=== PATIENT | male | born 1945 | race Caucasian/White ===

== ENCOUNTER → 2020-09-07 | Outpatient (CLI) | payer MEDICARE ==
--- NOTE | 2020-09-08 09:30 | US ---
EXAMINATION TYPE: US duplex aorta DATE OF EXAM: 09/07/2020 COMPARISON: NONE CLINICAL HISTORY: Z13.6 Encounter for screening for cardiovascular disorders. EXAM MEASUREMENTS: Abdominal Aorta: Proximal: 2.2cm Mid: 1.7cm Distal: 1.5cm Bifurcation: Right: 1.3 Left: 0.9cm There are mild atheromatous changes present along the aortoiliac distribution. Grayscale and color an d spectral Doppler imaging performed. Color flow and normal vascular waveform noted. IMPRESSION: No evident abdominal aortic aneurysm
--- NOTE | 2020-09-08 16:42 | ECHOF ---
Referral Reason:R94.31 Abnormal EKG, Z13.6 Screening for Abdominal MEASUREMENTS -------- HEIGHT: 165.1 cm WEIGHT: 80.3 kg BP: RVIDd: 4.1 cm (< 3.3) IVSd: 1.3 cm (0.6 - 1.1) LVIDd: 5.1 cm (3.9 - 5.3) LVPWd: 1.4 cm (0.6 - 1.1) IVSs: 1.8 cm LVIDs: 3.6 cm LVPWs: 1.6 cm LAESV Index (A-L): 22.78 ml/m Ao Diam: 3.6 cm (2.0 - 3.7) AV Cusp: 2.1 cm (1.5 - 2.6) LA Diam: 4.3 cm (2.7 - 3.8) MV EXCURSION: 21.085 mm (> 18.000) MV EF SLOPE: 63 mm/s (70 - 150) EPSS: 1.7 cm MV E Oniel: 0.49 m/s MV A Oniel: 0.95 m/s MV E/A Ratio: 0.51 RAP: 5.00 mmHg RVSP: 26.56 mmHg FINDINGS -------- Resting bradycardia (HR<60bpm). This was a technically adequate study. The left ventricular size is normal. There is mild concentric left ventricular hypertrophy. Overa ll left ventricular systolic function is low-normal with, an EF between 50 - 55 %. The diastolic fi lling pattern is normal for the age of the patient 12.30. The right ventricle is mild to moderately enlarged. Normal LA size by volume 22+/-6 ml/m2. The right atrial size is normal. Interatrial and interventricular septum intact. The aortic valve is trileaflet and appears structurally normal. There is no evidence of aortic regu rgitation. There is no evidence of aortic stenosis. No mitral regurgitation. Mild tricuspid regurgitation present. There is no evidence of pulmonary hypertension. The right v entricular systolic pressure, as measured by Doppler, is 26.56mmHg. There is no pulmonic regurgitation present. The aortic root size is normal. IVC Not well visulized. There is no pericardial effusion. CONCLUSIONS -------- 1. The left ventricular size is normal. 2. There is mild concentric left ventricular hypertrophy. 3. Overall left ventricular systolic function is low-normal with, an EF between 50 - 55 %. 4. The right ventricle is mild to moderately enlarged. 5. Mild tricuspid regurgitation present. SPECIAL TECHNICAL OPERATIONS OFFICER: Traci Lott RDCS
== END | disposition home or self-care (01) ==
LOC: RADECHMAIN 16:09
PROVIDERS: ATTEND Family Medicine
DX: Z13.6 Encounter for screening for cardiovascular disorders (principal); I07.1 Rheumatic tricuspid insufficiency
CPT/HCPCS: 93306; 93979

== ENCOUNTER → 2020-09-14 | Outpatient (CLI) | payer MEDICARE ==
--- NOTE | 2020-09-14 09:06 | MR ---
EXAMINATION TYPE: MR knee LT wo con DATE OF EXAM: 09/14/2020 COMPARISON: NONE. HISTORY: Twisted left knee, Pain behind Patella and behind knee. TECHNIQUE: Multiplanar, multisequence imaging of the left knee is performed without IV contrast. FINDINGS: MEDIAL MENISCUS: Medial extrusion of medial meniscus on coronal images. Vague increased signal mental health case manager ior horn likely extends to inferior articular surface sagittal image 24. Similar but less prominent f inding anterior horn LATERAL MENISCUS: Anterior and posterior horns are intact without tear. CRUCIATE LIGAMENTS: The anterior and posterior cruciate ligaments are intact and unremarkable. COLLATERAL LIGAMENTS: The medial collateral ligament and lateral collateral ligament complex are inta ct and unremarkable. EXTENSOR MECHANISM: Visualized quadriceps and patellar tendons are intact. EFFUSION: Large size suprapatellar joint effusion. POPLITEAL CYST: Moderate to large sized multi septated and leaking popliteal/mix cyst. TRICOMPARTMENT SPACES: Moderate to severe narrowing inferior medial tibiofemoral compartment. Mild to moderate narrowing medial lateral tibiofemoral compartment with mild to moderate tricompartment join t space spurring. CARTILAGE: Some chondromalacia patella with thinning of articular cartilage along the inferior aspect posterior patellar pole. Some cartilaginous loss medial tibial femoral compartment. BONE MARROW SIGNAL: Slight heterogeneous increased T2 signal medial aspect medial tibial plateau sagi ttal image 25 for reference. OTHER: No additional significant abnormality is appreciated. IMPRESSION: 1. Tricompartment degenerative changes greatest in patellofemoral and medial tibiofemoral compartment as detailed above. 2. Large suprapatellar joint effusion. 3. Large septated leaking popliteal cyst. 4. Intrasubstance tears anterior and posterior horn medial meniscus, probable full-thickness extensio n posterior horn.
== END | disposition home or self-care (01) ==
LOC: RADMRIMAIN 07:16
PROVIDERS: ATTEND Family Medicine
DX: M17.12 Unilateral primary osteoarthritis, left knee (principal); M66.0 Rupture of popliteal cyst; S83.8X2A Sprain of other specified parts of left knee, initial encounter

== ENCOUNTER → 2020-11-29 | Day surgery (SDC) | payer MEDICARE ==
[2020-11-25 17:12] VITALS: BMI 30.9
[~2020-11-29] MED LIST: ALPRAZolam 0.25 MG TAB PO PRN; ALPRAZolam 0.5 MG TAB PO PRN; ASPIRIN 325 MG TAB PO ONE; ASPIRIN 81 MG PO SCH; ATORVASTATIN 80 MG TAB PO ONE; HEPARIN SODIUM 1,000 UN/ML (10ML VL) IV ONE; HEPARIN SODIUM 1,000 UN/ML (10ML VL) ONE; HEPARIN SODIUM,PORCINE 10,000 UNIT in SODIUM CHLORIDE 0.9% 1,000 ML IRRIGATION PRN; HEPARIN SODIUM,PORCINE 2,500 UNIT in SODIUM CHLORIDE 0.9% 250 ML IRRIGATION PRN; IOPAMIDOL-370 125ML BTL INJ ONE; LIDOCAINE 1% INJ 10MG/ML (20 ML MDV) ONE; LIDOCAINE 1% INJ 10MG/ML (20 ML MDV) SQ ONE; LOSARTAN 50 MG TAB PO SCH; MULTIVITAMINS, THERA 1 EACH TAB PO SCH; NITROGLYCERIN SL TABS 0.4 MG TAB SUBLINGUAL PRN; RX INFO: IV CONTRAST WAS GIVEN 1 EACH MISC MISCELLANE PRN; SODIUM CHLORIDE 0.9% 1,000 ML IV SCH; SODIUM CHLORIDE 0.9% 1,000 ML in EMPTY BAG 1 BAG IV ONE; VERAPAMIL 2.5 MG/ML 2 ML AMP ONE; VERAPAMIL SYRINGE (5 MG/10 ML) INTRAARTER ONE; amLODIPine 5 MG TAB PO SCH; fentaNYL (PF) 50 MCG/ML 2 ML AMP IV ONE; fentaNYL (PF) 50 MCG/ML 2 ML AMP ONE; hydroCHLOROthiazide 12.5 MG CAP PO SCH
[2020-11-29 06:38] VITALS: RESP 16; TEMP 98.5
[2020-11-29 10:06] VITALS: BP 140/83; PULSE 48
--- NOTE | 2020-11-29 10:21 | CC ---
CARDIAC CATHETERIZATION REPORT The patient is a 75-year-old male with known history of hypertension, hyperlipidemia who recently had an evidence of stress-induced ischemia on his myocardial perfusion imaging. In view of that, recommendation regarding cardiac catheterization. The procedure, as well as the risks and the complications were discussed with the patient who is in full understanding and agreement. 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 Using Xylocaine anesthesia and Seldinger technique, a 6-Monegasque sheath was introduced in the right radial artery. Selective right and left coronary angiography performed using 5-Monegasque, 3.5 bend right and left Judkin's catheter. Multiple views of the coronary artery including hemiaxial views were obtained. Following that, a 5-Monegasque tight pigtail catheter introduced into the left ventricle and pressures were calculated. Following that, catheter and sheath were removed. Hemostasis was obtained with deployment of a TR band. There was no immediate complication. The patient was returned to his room in stable condition. Of note, the patient received a total of 4500 units of intravenous heparin, as well as intra-arterial verapamil. FINDINGS: LEFT MAIN: This is a large-sized vessel, bifurcating into left circumflex, left main coronary artery has no evidence of high-grade stenosis. LEFT ANTERIOR DESCENDING CORONARY ARTERY: This is a large-sized vessel reaching to the apex with a wraparound apex segment giving rise to a 2 diagonal branches of moderate caliber. The left anterior descending artery in the mid segment has a 30% to 40% plaque. After the takeoff of the second diagonal branch, the rest of the vessel has no high-grade stenosis. LEFT CIRCUMFLEX: This is a large nondominant vessel giving rise to 3 obtuse marginal branches. The third is the largest. The left circumflex, as well as branches have no evidence of obstructive coronary artery disease. RIGHT CORONARY ARTERY: This is a dominant vessel large in caliber. Bifurcating distally PDA and posterolateral segment branches. The right coronary artery, as well as branches have no evidence of obstructive disease. LEFT VENTRICULOGRAM: Left ventriculogram was not performed. HEMODYNAMICS: There was no gradient across the aortic valve. The left ventricular end-diastolic pressure was 10-12 mmHg. CONCLUSION: 1. 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 2. Right dominance. RECOMMENDATION: In view of findings and anatomy, I recommend continue medical therapy with aggressive coronary risk modifications that have been initiated. Those findings and recommendation were discussed with the patient and his family and they are in full understanding and agreement. Duration of sedation is 17 minutes. MMODL / IJN: [id number] /
== END | disposition home or self-care (01) ==
LOC: CATHCVL 06:10
PROVIDERS: ATTEND Internal Medicine Interventional Cardiology
DX: I25.10 Atherosclerotic heart disease of native coronary artery without angina pectoris (principal); R94.39 Abnormal result of other cardiovascular function study; E78.5 Hyperlipidemia, unspecified; I10 Essential (primary) hypertension; Z79.899 Other long term (current) drug therapy; Z87.891 Personal history of nicotine dependence
CPT/HCPCS: 93458; C1894; C1769; J2001; J3010; J1644; Q9967

== ENCOUNTER → 2021-11-11 | Outpatient (CLI) | payer MEDICARE ==
--- NOTE | 2021-11-11 14:01 | MR ---
EXAMINATION TYPE: MR shoulder RT wo con DATE OF EXAM: 11/11/2021 COMPARISON: Plain film 10/28/2021 HISTORY: Right shoulder pain, prior surgery for spurs. TECHNIQUE: Multiplanar, multisequence imaging of the right shoulder is performed without contrast. FINDINGS: Rotator Cuff: Rotator cuff is markedly attenuated, shows abnormal increased intrinsic signal, there i s a partial full-thickness tear are suspected with multiple areas of irregular fluid signal present a t the expected insertion of the rotator cuff on the humeral head Acromioclavicular Joint: Distance is widened, distal clavicle shows a pencillike appearance, correlat e for prior surgical intervention. Susceptibility artifact is present due to prior instrumentation Glenohumeral Joint: Shoulders high riding. There is spurring at the glenohumeral joint, remodeling is present Labrum: Increased intrinsic signal within the labrum, there is remodeling at the bony glenoid, diffic ult to exclude a degenerative tear, subchondral geode formation at the inferior bony glenoid suggests chondromalacia Biceps Tendon: The long head of biceps is in normal location within bicipital groove. There is fluid signal present along the long head of biceps tendon, some central intrinsic signal within the biceps tendon could reflect a longitudinal tear Bone marrow signal: Pseudocysts formation is present within the humeral head especially at the site o f patient's expected rotator cuff insertion, there is some mixed signal present along the humeral hea d which may be related to prior surgery posteriorly Other: There is a joint effusion present. Some fluid signal is present along the subscapularis muscul otendinous junction IMPRESSION: There is advanced osteoarthritis, high riding shoulder with areas of partial full-thickness rotator c uff tear, marked attenuation of the rotator cuff, postop changes and additional findings above.
== END | disposition home or self-care (01) ==
LOC: RADMRIMAIN 08:59
PROVIDERS: ATTEND Orthopaedic Surgery
DX: M75.111 Incomplete rotator cuff tear or rupture of right shoulder, not specified as traumatic (principal); M19.011 Primary osteoarthritis, right shoulder

== ENCOUNTER 2021-12-29 05:37 | Day surgery (SDC) | payer MEDICARE ==
[2021-12-26 12:23] VITALS: BMI 29.6
--- NOTE | 2021-12-28 23:23 | HP ---
HISTORY AND PHYSICAL DATE OF SURGERY: 12/29/2021 HISTORY OF PRESENT ILLNESS: Bao Crowder is a 76-year-old gentleman seen with progressive right shoulder pain. Options were discussed with him. He elected to proceed with right shoulder arthroscopy. Consent was obtained. Medical clearance was provided by Dr. Tena. PAST MEDICAL HISTORY: Hyperlipidemia, hypertension. PAST SURGICAL HISTORY: Shoulder arthroscopy, foot surgery. DAILY MEDICATIONS: Amlodipine and atorvastatin. ALLERGIES: None. SOCIAL HISTORY: Denies current tobacco use. PHYSICAL EVALUATION OF THE RIGHT KNEE: Flexion is 140 degrees, abduction is 130 degrees, external rotation is 50 degrees with pain and weakness and tenderness along the anterolateral acromion rotator cuff insertion. Impingement positive at 90 degrees. Drop-arm sign is positive. Distal neurovascular exam is intact. RADIOGRAPHS: Right shoulder reveal a lateral downsloping acromion with acromioclavicular joint osteoarthritis. Right shoulder MRI revealed a rotator cuff tendon tear and osteoarthritic changes. IMPRESSION: 1. Right shoulder impingement with rotator cuff tear. 2. Right shoulder osteoarthritis. 3. Hypertension. 4. Hyperlipidemia. PLAN: Right shoulder arthroscopy with subacromial decompression, arthroscopic rotator cuff repair and debridement. MMODL / IJN: [id number] /
[2021-12-29] MEDS ORDERED: DEXAMETHASONE SOD PHOSPHATE 4 MG/ML 1 ML VIAL IV ONE (05:45)
[2021-12-29] MEDS ORDERED: LACTATED RINGERS 1,000 ML IV SCH (05:45)
[2021-12-29] MEDS ORDERED: LIDOCAINE 1% (10MG/ML) FOR IV START INTRADERMA PRN (05:45)
[2021-12-29] MEDS ORDERED: ONDANSETRON 4 MG/2 ML VIAL IVP PRN (07:00)
[2021-12-29] MEDS ORDERED: MIDAZOLAM 2 MG/2 ML VIAL IVP ONE (07:02)
[2021-12-29] MEDS ORDERED: SUCCINYLCHOLINE CHLORIDE 200 MG/10 ML VIAL IV ONE (07:24)
[2021-12-29] MEDS ORDERED: LIDOCAINE 2% INJ 20 MG/ML (2 ML VIAL) ONE (07:24)
[2021-12-29] MEDS ORDERED: fentaNYL (PF) 50 MCG/ML 2 ML AMP ONE (07:24)
[2021-12-29] MEDS ORDERED: PROPOFOL 10 MG/ML 20 ML VIAL IV ONE (07:24)
[2021-12-29] MEDS ORDERED: ROPIVACAINE 5 MG/ML 30 ML VIAL ONE (07:24)
--- NOTE | 2021-12-29 08:50 | P.OP ---
Date of Procedure: 12/29/21 Preoperative Diagnosis: Right shoulder impingement Postoperative Diagnosis: 1. Right shoulder rotator cuff tear 2. Right shoulder impingement 3. Right shoulder glenohumeral osteoarthritis Procedure(s) Performed: 1. Right shoulder arthroscopic rotator cuff repair 2. Right shoulder arthroscopic subacromial decompression Anesthesia: GETA, regional (Interscalene block) Surgeon: Jono Tran Estimated Blood Loss (ml): 11 Pathology: none sent Condition: stable Disposition: PACU Indications for Procedure: 76-year-old patient seen with progressive right shoulder pain. After treatment options were discussed, he elected to proceed with arthroscopy. Operative Findings: see description of procedure Description of Procedure: Patient underwent an interscalene block by department of anesthesia. The patient was then taken to the operative suite. The patient underwent a general anesthetic by the department of anesthesia. The patient was placed into a lateral position and secured. There was appropriate padding of the bony prominence. Right shoulder was then prepped and draped in normal sterile orthopedic fashion. We placed the extremity in 10 pounds of longitudinal traction. A posterior incision was now made for a posterior working portal site. The trocar and cannula were inserted into the glenohumeral joint. Arthroscopy was initiated. Spinal needle was now inserted anteriorly, to ascertain the anterior working portal site. An incision was now made in that area, a trocar was inserted followed by a probe. There was grade 4 chondral malacia changes noted at the superior aspect of the humeral head and superior aspect of the glenoid fossa. There was some fraying of the labrum superiorly. The biceps tendon was absent. I introduced a motorized shaver and debrided out the area of labral fraying. The residual labrum was probed and was found to be stable. I again noted grade 4, she changes with exposed bone areas. Instruments now removed from glenohumeral joint. Utilizing the posterior working portal site, the trocar and cannula were inserted into the subacromial space. Arthroscopy initiated. I made an incision 2 fingerbreadths lateral to the acromion. I introduced my trocar followed by my [employer] ablator. I now began ablating thick subacromial bursal tissue, which exposed the undersurface of the anterior acromion. There was diminished subacromial space. There was a very prominent anterior acromion. A motorized bur was introduced and a subacromial decompression was performed. I also excised some osteophytes off the inferior aspect of the distal clavicle. The AC joint was visualized and noted to be stable with evidence of previous resection arthroplasty. I now turned my attention to the rotator cuff tendon. Following the posterior supraspinatus area noted a full-thickness perforation in the intrasubstance area with evidence of previous suture material. The suture material was debrided out. The intrasubstance tear measuring about 1 cm. I debrided the margins getting down to stable tendon tissue. Again the defect measured approximately 1 cm. With the assistance of Tristin FLORENTINO I was able to pass to simple sutures and I performed a [id number] repair. The repair was probed and was found to be stable. The remaining area of rotator cuff tendon appears stable. Instruments now removed from the portal sites. All portal sites were approximated with nylon suture. Sterile dressings were applied followed by a shoulder sling. Leoncio FLORENTINO assisted in this case. The patient was awakened, transferred to a bed, and taken to recovery in stable condition.
[2021-12-29 08:59] VITALS: TEMP 97
[2021-12-29 09:09] VITALS: RESP 16
[2021-12-29] MEDS ORDERED: KETOROLAC 15 MG/ML 1 ML VIAL IVP ONE (09:15)
[2021-12-29] MEDS: HYDROmorphone 0.5 MG/0.5 ML SYRINGE IVP PRN ×2 (09:20→09:30)
[2021-12-29] MEDS ORDERED: hydrALAZINE HCL 20 MG/ML 1 ML VIAL IVP ONE ×2 (09:36→09:40)
[2021-12-29 10:46] VITALS: BP 151/89; PULSE 65
--- NOTE | 2021-12-29 10:55 | P.ANPRN ---
Procedure Note - Anesthesia - Nerve Block Performed Right Interscalene Single Time Out Performed: Yes ([id number]) Date of Procedure: 12/29/21 Procedure Start Time: : Procedure Stop Time: : Location of Patient: PreOp Indication: Acute Post-Operative Pain, Requested by Surgeon Specifically requested for management of pain by DrRubio: Jono Tran Sedation Type: Sedate with meaningful contact maintained Preparation: Sterile Prep Position: Supine Catheter: None Needle Types: Pajunk Needle Gauge: 21 Ultrasound used to visualize needle placement: Yes Ultrasound used to observe medication spread: Yes Injectate: 0.5% Ropivacaine (see comment for volume) (30cc) Blood Aspirated: No Pain Paresthesia on Injection Noted: No Resistance on Injection: Normal Image Stored and Saved: Yes Events: Uneventful and Well Tolerated
== END 2021-12-29 10:47 | disposition home or self-care (01) ==
LOC: OR 05:37
PROVIDERS: ATTEND Orthopaedic Surgery
DX: M75.41 Impingement syndrome of right shoulder (principal); M75.121 Complete rotator cuff tear or rupture of right shoulder, not specified as traumatic; M19.011 Primary osteoarthritis, right shoulder; M94.211 Chondromalacia, right shoulder; M25.711 Osteophyte, right shoulder; G89.18 Other acute postprocedural pain; I10 Essential (primary) hypertension; E78.5 Hyperlipidemia, unspecified; G47.33 Obstructive sleep apnea (adult) (pediatric); Z87.891 Personal history of nicotine dependence; Z79.899 Other long term (current) drug therapy; Z79.01 Long term (current) use of anticoagulants; Z80.42 Family history of malignant neoplasm of prostate
CPT/HCPCS: 64415; 76942; 29827; 29826; J2250; J0330; J0360; J1100; J0690; J2405; J3010; J2795; J1885; J2704; J1170; J2001

== ENCOUNTER → 2024-05-09 | Outpatient (CLI) | payer MEDICARE ==
[2024-05-09 11:09] LABS: African American GFR (CKD) 81 (>60 ml/min/1.73 sqM); Blood Urea Nitrogen 20 mg/dL (9-20); Non-African American GFR(CKD) 70 (>60 ml/min/1.73 sqM)
--- NOTE | 2024-05-09 11:57 | CT ---
EXAMINATION TYPE: CT angio chest CT DLP: 776.4 mGycm, Automated exposure control for dose reduction was used. 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 3D reconstructed images are created on an independent workstation and reviewed.. FINDINGS: Lungs/Pleura: No evidence of focal consolidation, pleural effusion or pneumothorax. No suspicious pul monary nodule or mass. Airway: Large airways are patent. Heart: Heart is within normal limits for size.. No pericardial effusion. Small coronary calcification s. Vasculature: Conventional three-vessel aortic arch. Aneurysmal dilatation of the aortic root measurin g up to 4.6 cm. Aneurysmal dilatation of the ascending thoracic aorta measuring up to 4.1 cm. No exte nsion to the arch. The descending thoracic aorta measures up to 2.8 cm. No evidence of aortic intramu ral hematoma or dissection. Mild atherosclerotic calcification of the aorta and its branches. Mediastinum: No evidence of adenopathy. Musculoskeletal: No acute osseous abnormalities . Mild multilevel degenerative disc disease with disc space narrowing, and anterior osteophytosis. Prominent Schmorl's nodes involving the inferior endpla abraham of the L2 and L3 vertebral bodies. Soft Tissues: Minimal bilateral gynecomastia. Lower neck: No significant findings. Upper Abdomen: Hypodense thickening of both adrenal glands likely related to hyperplasia. Scattered c olonic diverticulosis without visualized acute diverticulitis. IMPRESSION: 1. Aneurysmal dilatation of the aortic root measuring up to 4.6 cm and the ascending thoracic aorta measuring up to 4.1 cm. No evidence for intramural hematoma or dissection. 2. Colonic diverticulosis without evidence for acute diverticulitis. [facility], , 05/09/2024 11:55 AM
== END | disposition home or self-care (01) ==
LOC: RADCTMAIN 10:13
PROVIDERS: ATTEND Internal Medicine Interventional Cardiology
DX: I71.20 Thoracic aortic aneurysm, without rupture, unspecified (principal); K57.30 Diverticulosis of large intestine without perforation or abscess without bleeding; N62 Hypertrophy of breast; I70.0 Atherosclerosis of aorta
CPT/HCPCS: 82565; 84520; 71275; 36415; Q9967

== ENCOUNTER → 2024-07-18 | Outpatient (CLI) | payer MEDICARE | END | disposition home or self-care (01) | LOC: LABWHC1 14:41 | PROVIDERS: ATTEND Internal Medicine | DX: R41.3 Other amnesia (principal) | CPT/HCPCS: 36415; 82607; 82746; 84443; 85652; 86780 ==

== ENCOUNTER → 2024-07-24 | Outpatient (CLI) | payer MEDICARE ==
--- NOTE | 2024-07-24 14:46 | CT ---
EXAMINATION TYPE: CT brain wo con DATE OF EXAM: 07/24/2024 COMPARISON: None CLINICAL INDICATION: Male, 79 years old with history of R41.3 OTHER AMNESIA; PHH, Memory loss. CT DLP: 1031.9 mGycm Automated exposure control for dose reduction was used. TECHNIQUE: Multiple axial images are obtained from skull base to vertex without IV contrast. FINDINGS: The ventricles, basal cisterns and sulci over the convexities are within normal limits for the patien t's age and there is no mass effect or shift of midline structures. There is mild diffuse decreased density in the periventricular white matter consistent with mild derrick helper janeen ischemic white matter demyelination. There is no acute intra or extra-axial hemorrhage. The posterior fossa and brainstem, fourth ventricle and cerebellar pontine angles appear normal. The intraorbital contents appear normal and symmetric. Visualized paranasal sinuses and mastoid air cells are well aerated. IMPRESSION: 1. No acute bleed or mass effect. 2. Mild age-appropriate senescent changes. [facility], , 07/24/2024 2:44 PM
== END | disposition home or self-care (01) ==
LOC: RADCTMAIN 14:01
PROVIDERS: ATTEND Internal Medicine
DX: G93.89 Other specified disorders of brain (principal); R41.3 Other amnesia
CPT/HCPCS: 70450